=== PATIENT | female | born 2000 | race Caucasian/White ===

== ENCOUNTER 2022-02-22 10:27 | Observation (INO) | payer OTHER, SELFPAY ==
--- NOTE | 2022-02-22 11:05 | P.PCN_ITS ---
Procedures Date/Time Date of procedure: 02/22/22 Time of procedure: 13:07 General Procedure description: External cephalic version Patient is a 21-year-old EDC 03/19/2022 at 36 weeks 3 days referred for external cephalic version by her nurse chief engineer research. Patient's has been uncomplicated. She denies headaches, scotomata, epigastric pain. She is been having good movement. No leakage of fluid. Ultrasound was performed. The fetus is breech with the head in the right upper quadrant. The placenta is anterior with early grade 3 changes. Amniotic fluid volume is normal. Blood pressure 124/80, pulse 73, temperature 98.4? Consent for external version was reviewed with the patient. Risk of distress that could require immediate section. Risk of premature separation of placenta that could require early delivery. Risk of onset of labor or rupture membranes that could require delivery. if not turn vaginal delivery attempt if fetus is turned. Consent form signed and questions answered. Nonstress test was reactive prior to procedure. Patient received terbutaline subcu. The fetus was turned to vertex with 1 attempt. heart tones reassuring at the end of the procedure. Patient was monitored for 1 hour. NST reactive. No contractions. Patient denies pain, vaginal bleeding, leakage of fluid. Patient was discharged home to be followed up with her nurse chief engineer research. Complications: none
[2022-02-22] MEDS: TERBUTALINE 1 MG/ML VIAL SUBCUT (11:17)
[2022-02-22 11:44] LABS: Add Manual Diff / Slide Review NO; Basophils Absolute Auto 0 /uL (0-100); Basophils Percent Auto 0.4 % (0-2); Eosinophils Absolute Auto 0 /uL (0-450); Eosinophils Percent Auto 0.2 % (2-4); Hematocrit 34.7 % (36-46); Hemoglobin 11.3 g/dL (12.0-16.0); Lymphocytes Absolute Auto 2200 /uL (1100-4500); Lymphocytes Percent Auto 25.2 % (25-40); Mean Corpuscular HGB Conc 32.7 % (30-36); Mean Corpuscular Hemoglobin 27.3 PG (26-34); Mean Corpuscular Volume 83.4 fL (80-100); Monocytes Absolute Auto 500 /uL (0-900); Monocytes Percent Auto 6.2 % (3-14); Neutrophils Absolute Auto 6000 /uL (1500-7000); Platelet Count 217 X10^3/uL (150-400); Red Blood Cell Count 4.16 X10^6/uL (4.0-5.2); Red Cell Distribution Width 14.3 % (11.6-14.8); White Blood Cell Count 8.9 X10^3/uL (4.5-11.0)
== END 2022-02-22 13:05 | disposition home or self-care (01) ==
PROVIDERS: Admitting Provider Specialist; Referring Provider Specialist; Visit Provider Specialist
DX: O32.1XX0 Maternal care for breech presentation, not applicable or unspecified (principal); Z3A.36 36 weeks gestation of pregnancy
CPT/HCPCS: 59025; 59050; 59412; 76815; 85025; 86850; 86900; 86901; 96360; 96361; 96372; G0378; G0379